=== PATIENT | female | born 1975 | race Hispanic/Latino ===

== ENCOUNTER 2016-09-28 14:06 | Emergency (ER) | payer MEDICAID ==
[2016-09-28 14:12] VITALS: BP 109/76; PULSE 79; RESP 20; TEMP 98; O2SAT 98
--- NOTE | 2016-09-28 14:41 | ED PDOC ---
HPI: General Adult Time Seen by Provider: 09/28/16 14:17 Chief Complaint (Nursing): Abnormal Skin Integrity Chief Complaint (Provider): Fever History Per: Patient Additional Complaint(s): Pt arrives for eval of cyst inside of cheek and fever since yesterday. (+) redness and swelling to left cheek developed today. Pt states she took Motrin at 1230p. Hx of seizures and asthma. Past Medical History Vital Signs: Last Vital Signs Temp 98 F 09/28/16 14:09 Pulse 79 09/28/16 14:09 Resp 20 09/28/16 14:09 BP 109/76 09/28/16 14:09 Pulse Ox 98 09/28/16 14:51 - Medical History PMH: Anxiety, Asthma, Back Problems, Seizures - Family History Family History: States: Unknown Family Hx - Immunization History Hx Tetanus Toxoid Vaccination: Yes Hx Influenza Vaccination: No Hx Pneumococcal Vaccination: No - Home Medications Home Medications: Ambulatory Orders Medication Instructions Recorded Meclizine [Meclizine*] 25 mg PO TID 11/02/14 Albuterol HFA [Ventolin HFA 90 0.09 mg IH Q4 PRN #1 puff 03/30/15 mcg/actuation (8 g)] Alprazolam [Xanax Xr] 10 tab PO BID 03/30/15 Cephalexin [Keflex] 500 mg PO Q6 #28 capsule 05/18/16 Gabapentin [Neurontin] 600 mg PO BID 05/18/16 Naproxen [Naprosyn Tab] 500 mg PO Q12 #20 tab 05/18/16 Sulfamethoxazole/Trimethoprim 2 tab PO BID #28 tab 05/18/16 [Bactrim DS 800 mg-160 mg] Clindamycin [Cleocin] 300 mg PO BID #14 cap 09/28/16 Ibuprofen [Motrin] 600 mg PO Q6 #20 tab 09/28/16 - Allergies Allergies/Adverse Reactions: Allergies Allergy/AdvReac Type Severity Reaction Status Date / Time No Known Allergies Allergy Verified 08/03/16 20:01 - Laboratory Results Result Diagrams: 09/28/16 15:05 09/28/16 15:05 - ECG O2 Sat by Pulse Oximetry: 98 Medical Decision Making Medical Decision Making: IV access established and treatment initiated with IVF [facility] ordered CT: There is mild induration and/or possibly early phlegmon formation along the buccal surface left anterolateral maxilla with small radicular cysts involving the left lateral incisor and left 1st cuspid tooth Soft tissue swelling extends slightly into the left premaxillary soft tissues. These findings likely represent infectious process involving the gums and cellulitis involving the overlying subcutaneous tissues on possibly of dental origin however clinical correlation recommended. Dental consultation suggested Mild mucosal thickening within the left maxillary antrum felt to be incidental. See above discussion for details and findings. . Note these findings were discussed with emergency room NEHA Solano at approximately 4:20 p.m. with written down and read back verification Pt educated on results and demonstrated full understanding Disposition - Clinical Impression Clinical Impression: Dental abscess - Patient ED Disposition Is Patient to be Admitted: No - Disposition Disposition: Routine/Home Disposition Time: 16:44 Condition: STABLE Prescriptions: Clindamycin [Cleocin] 300 mg PO BID #14 cap Ibuprofen [Motrin] 600 mg PO Q6 #20 tab Instructions: Dental Abscess (ED)
[2016-09-28] MEDS ORDERED: Clindamycin 600 MG in Sodium Chloride 0.9% 100 ML IVPB STA (14:51)
[2016-09-28] MEDS ORDERED: Iohexol 300 100 ML IJ ONE (15:21)
[2016-09-28] MEDS ORDERED: Sodium Chloride 0.9% 50 ML IV ONE (15:21)
[2016-09-28 15:25] LABS: BASO % 0.8 % (0.0-2.0); EOS # 0.3 K/uL (0.0-0.7); EOS % 4.4 % (0.0-4.0); HEMOGLOBIN 12.6 g/dL (12.0-16.0); LYMPH # 2.3 K/uL (1.0-4.3); LYMPH % 38.6 % (20.0-40.0); MEAN CELL VOLUME 88.6 fl (81.0-99.0); MEAN CORPUSCULAR HEMOGLOBIN 29.7 pg (27.0-31.0); MEAN CORPUSCULAR HGB CONC 33.6 g/dL (33.0-37.0); MEAN PLATELET VOLUME 8.2 fl (7.2-11.7); MONO # 0.8 K/uL (0.0-0.8); MONO % 12.6 % (0.0-10.0); NEUT # 2.6 K/uL (1.8-7.0); NEUT % 43.6 % (50.0-75.0); RBC 4.24 Mil/uL (3.80-5.20); RED CELL DISTRIBUTION WIDTH 14.7 % (11.5-14.5)
[2016-09-28 15:40] LABS: ALB/GLOB RATIO 1.1 (1.0-2.1); ALBUMIN 3.6 g/dL (3.5-5.0); ALT/SGPT 113 U/L (9-52); AST/SGOT 95 U/L (14-36); BLOOD UREA NITROGEN 6 mg/dl (7-17); CALCIUM 8.6 mg/dL (8.4-10.2); GFR AFRICAN-AMERICAN > 60; GFR NON-AFRICAN AMERICAN > 60
--- NOTE | 2016-09-28 16:26 | CT ---
PROCEDURE: CT scan maxillofacial skeleton HISTORY: 09/28/2016 left cheek swelling ; rule out dental abscess. COMPARISON: No prior TECHNIQUE: Contiguous axial CT images of the maxillofacial bones were obtained following administration of IV contrast. Coronal and sagittal reformats were generated. Intravenous contrast Dose: 75 cc of Omnipaque 300 Radiation dose: Total exam DLP = 703.72 mGy-cm. This CT exam was performed using one or more of the following dose reduction techniques: Automated exposure control, adjustment of the mA and/or kV according to patient size, and/or use of iterative reconstruction technique. FINDINGS: Findings: The current study reveals mild induration and/or possible early phlegmon formation along the buccal surface of the left maxilla. Note is made of small radicular cysts involving left lateral incisor and left 1st cuspid tooth. . . The soft tissue swelling extends slightly into the left premaxillary region. No definitive drainable abscess is identified. . These findings likely represent infectious process involving the gums and cellulitis involving the overlying subcutaneous tissues on possibly of dental origin however clinical correlation recommended. Dental consultation suggested. Note made of the multiple missing teeth in the right maxilla. No significant left periorbital soft tissue swelling. Maxillary sinuses are diminutive with partial opacification left maxillary antrum. Minor mucosal thickening seen within a few ethmoid air cells. No fluid levels are identified to suggest acute sinusitis possible cause. Note made of small to medium-sized bilateral submandibular lymph nodes. There is also mild asymmetry of the pyriform sinuses and aryepiglottic folds which could be secondary to some residual and or retained secretion. Clinical correlation recommended. Orbits and contents unremarkable. Globes are intact and lenses appropriately located. There are no retrobulbar hemorrhages or collections. Optic nerves and extraocular musculature unremarkable. Impression: There is mild induration and/or possibly early phlegmon formation along the buccal surface left anterolateral maxilla with small radicular cysts involving the left lateral incisor and left 1st cuspid tooth Soft tissue swelling extends slightly into the left premaxillary soft tissues. These findings likely represent infectious process involving the gums and cellulitis involving the overlying subcutaneous tissues on possibly of dental origin however clinical correlation recommended. Dental consultation suggested Mild mucosal thickening within the left maxillary antrum felt to be incidental. See above discussion for details and findings. . Note these findings were discussed with emergency room NEHA Solano at approximately 4:20 p.m. with written down and read back verification
== END 2016-09-28 16:50 | disposition home or self-care (01) ==
LOC: H.ER 14:06
DX: K04.7 Periapical abscess without sinus (principal); F41.9 Anxiety disorder, unspecified; J45.909 Unspecified asthma, uncomplicated; Z86.69 Personal history of other diseases of the nervous system and sense organs